=== PATIENT | female | born 1945 | race Caucasian/White ===

== ENCOUNTER 2017-01-29 13:24 | Emergency (ER) | payer MEDICARE, OTHER ==
[2017-01-29 13:51] VITALS: BP 123/58; PULSE 67; RESP 20; TEMP 98.4; O2SAT 95
[2017-01-29] MEDS ORDERED: SPIRCAP INH (14:40)
[2017-01-29] MEDS ORDERED: SYMB80AE INH (14:40)
[2017-01-29] MEDS ORDERED: ALLO100T PO (14:40)
[2017-01-29] MEDS ORDERED: XARE10TA PO (14:40)
[2017-01-29] MEDS ORDERED: SODIUM CHLOR 0.9% 1000 ML INJ 1,000 ML IV SCH (14:49)
--- NOTE | 2017-01-29 14:55 | PD ---
HPI Chief Complaint: Skin Problem Time Seen by Provider: 14:49 Travel History International Travel<30 days: No Contact w/Intl Traveler<30days: No Traveled to known affect area: No History of Present Illness HPI The patient is a 71-year-old female who presents emergency department for a rash. The patient states that the rash started earlier today, one to 2 hours prior to arrival. The rash is located over the anterior aspect of the chest, abdomen, and back. She describes the rash is red, elevated, but minimally pruritic. She denies any swelling of the tongue, lips, difficulty swallowing, or wheezing. She denies any chest tightness or shortness of breath. She denies any history of similar reactions. She does have a history of COPD was recently placed on Levaquin 3 days ago. She denies any previous history of allergies or exposure to Levaquin. 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 The patient does complain of mild nausea but denies any vomiting. She denies any accompanying abdominal pain. PFSH Past Medical History Atrial Fibrillation: Yes COPD: Yes GERD: Yes Social History Alcohol Use: No Tobacco Use: No Substance Use: No Allergies-Medications (Allergen,Severity, Reaction): Coded Allergies: Penicillins (Verified Allergy, Unknown, 01/29/17) morphine (Verified Allergy, Unknown, 01/29/17) shellfish derived (Verified Allergy, Unknown, 01/29/17) Reported Meds & Prescriptions Reported Meds & Active Scripts Active Reported Symbicort Inh (Budesonide/Formoterol Fumarate) 80-4.5 Mcg/Act Aero Unknown Dose INH Q12HR Xarelto (Rivaroxaban) 10 Mg Tab Unknown Dose PO DAILY Allopurinol 100 Mg Tab Unknown Dose PO DAILY Spiriva Handihaler (Tiotropium Inh) 18 Mcg Cap 18 Mcg INH DAILY 1 capsule = 18 mcg Review of Systems Except as stated in HPI: all other systems reviewed are Neg General / Constitutional: No: Fever HENT: No: Sore Throat Cardiovascular: No: Chest Pain or Discomfort Respiratory: No: Shortness of Breath, Wheezing Gastrointestinal: Positive: Nausea, No: Vomiting Skin: Positive Rash Physical Exam Narrative GENERAL: Awake, alert, nontoxic-appearing 71-year-old female who appears her stated age and is in no acute respiratory distress. SKIN: Focused skin assessment warm/dry. Patient has an erythematous, elevated rash on the anterior aspect of the chest, abdomen, and back which is blanching. No visible involvement of the face, hands, or feet. HEAD: Atraumatic. Normocephalic. EYES: Pupils equal and round. No scleral icterus. No injection or drainage. ENT: No nasal bleeding or discharge. Mucous membranes pink and moist. No angioedema of the lips, uvula, or tongue noted. NECK: Trachea midline. No JVD. CARDIOVASCULAR: Regular rate and rhythm. No murmur appreciated. RESPIRATORY: No accessory muscle use. Clear to auscultation. Breath sounds equal bilaterally. No wheezing noted. GASTROINTESTINAL: Abdomen soft, non-tender, nondistended. MUSCULOSKELETAL: No obvious deformities. No clubbing. No cyanosis. No edema. NEUROLOGICAL: Awake and alert. No obvious cranial nerve deficits. Motor grossly within normal limits. Normal speech. PSYCHIATRIC: Appropriate mood and affect; insight and judgment normal. Data Data Last Documented VS Vital Signs Date Time Temp Pulse Resp B/P (MAP) Pulse Ox O2 Delivery O2 Flow Rate FiO2 01/29/17 16:10 57 20 127/49 (75) 92 01/29/17 13:51 98.4 Orders Orders Ecg Monitoring (01/29/17 14:49) Iv Access Insert/Monitor (01/29/17 14:49) Oximetry (01/29/17 14:49) Diphenhydramine Inj (Benadryl Inj) (01/29/17 15:00) Methylprednisolone So Succ Inj (Solumedr (01/29/17 15:00) Famotidine Inj (Pepcid Inj) (01/29/17 15:00) Sodium Chlor 0.9% 1000 Ml Inj (Ns 1000 M (01/29/17 14:49) Sodium Chloride 0.9% Flush (Ns Flush) (01/29/17 15:00) MDM Medical Decision Making Medical Screen Exam Complete: Yes Emergency Medical Condition: Yes Medical Record Reviewed: Yes Differential Diagnosis Differential diagnosis includes allergic reaction, urticaria, angioedema, medication side effect, dermatitis, viral eruption. Narrative Course IV was established, labs are drawn and sent, and the patient was placed on cardiac telemetry monitoring and continuous pulse oximetry monitoring. The patient was administered Solu-Medrol, Benadryl, Pepcid, Zofran, and IV fluids. The patient was reevaluated at 4:40 PM, her rash was still present, but was dull and still blanching. The patient had no angioedema noted of the tongue, lips, or uvula. The patient was able to tolerate Gatorade without difficulty. The patient is advised to stop the Levaquin as this may be an allergic reaction and to take medications as directed. She is advised to follow-up with her primary physician and return if symptoms worsen or progress. Patient Instructions: General Instructions Additional Instructions: Medications as directed. Stop Levaquin. Follow-up with your primary physician. Return if symptoms worsen or progress. Med/Other Pt SpecificInfo: Prescription(s) given Scripts Ranitidine (Zantac) 150 Mg Tab 150 MG PO BID for Reduce Stomach Acid for 5 Days, #10 TAB 0 Refills Prov: Damion Xiao MD 01/29/17 Diphenhydramine (Diphenhydramine) 25 Mg Cap 25 MG PO Q6H Y for ALLERGIES, #20 CAP 0 Refills Prov: Damion Xiao MD 01/29/17 Prednisone (Deltasone) 20 Mg Tab 40 MG PO DAILY for 4 Days, #8 TAB 0 Refills Prov: Damion Xiao MD 01/29/17 Epinephrine Inj (Epipen 2-Zack Inj) 0.3 Mg/0.3 Ml Pfpen 0.3 MG IM ONCE Y for ALLERGIC REACTION, #1 PACK 0 Refills Prov: Damion Xiao MD 01/29/17 Disposition: 01 DISCHARGE HOME Condition: Stable Damion Xiao MD Jan 29, 2017 14:55
[2017-01-29 14:58] VITALS: O2SAT 98
[2017-01-29] MEDS ORDERED: diphenhydrAMINE HCL 50 MG/ML VIAL IVP ONE (15:00)
[2017-01-29] MEDS ORDERED: methylPREDNISolone SOD SUCC 125 MG/2 ML VIAL IVP ONE (15:00)
[2017-01-29] MEDS ORDERED: SODIUM CHLORIDE 0.9% FLUSH 10 ML FLUSH IV FLUSH PRN (15:00)
[2017-01-29] MEDS ORDERED: FAMOTIDINE 20 MG/2 ML VIAL IV PUSH ONE (15:00)
[2017-01-29 15:05] VITALS: BP 109/54; PULSE 61; RESP 20; O2SAT 94
[2017-01-29 16:10] VITALS: BP 127/49; PULSE 57; RESP 20; O2SAT 92
[2017-01-29] MEDS ORDERED: DIPH25CA PO (16:49)
[2017-01-29] MEDS ORDERED: ZANT150T2 PO (16:49)
[2017-01-29] MEDS ORDERED: PRED-503 PO (16:49)
[2017-01-29] MEDS ORDERED: EPIP0.3I IM (16:49)
== END 2017-01-29 17:44 | disposition home or self-care (01) ==
LOC: PHED 13:24
DX: R21 Rash and other nonspecific skin eruption (principal); I48.91 Unspecified atrial fibrillation; J44.9 Chronic obstructive pulmonary disease, unspecified; K21.9 Gastro-esophageal reflux disease without esophagitis; Z88.0 Allergy status to penicillin
CPT/HCPCS: 96361; 96374; 96375; 99284; J1200; J2930; J7030

== ENCOUNTER 2017-03-11 23:12 | Inpatient (IN) | payer OTHER, MEDICARE ==
[~2017-03-11] VITALS: Ht 162.6 cm; Wt 80.0 kg
[~2017-03-11 23:12] MED LIST: ALLO100T PO; DIPH25CA PO; EPIP0.3I IM; PRED-503 PO; SPIRCAP INH; SYMB80AE INH; XARE10TA PO; ZANT150T2 PO
[2017-03-11] MEDS ORDERED: IOHEXOL 350 MG/ML 10 ML VIAL (for RAD DIAG) IVCONTRAST ONE (23:13)
[2017-03-11 23:33] VITALS: BP 151/67; PULSE 77; RESP 19; TEMP 98.3; O2SAT 94
[2017-03-11 23:36] VITALS: RESP 19; O2SAT 98
[2017-03-11 23:41] LABS: AUTOMATED NEUTROPHIL # 11.5 TH/MM3 (1.8-7.7); BASOPHIL # 0.1 TH/MM3 (0-0.2); BASOPHIL % 1.1 % (0.0-2.0); EOSINOPHIL % 0.1 % (0.0-4.0); HEMATOCRIT 39.4 % (35.0-46.0); LYMPH % 9.1 % (9.0-44.0); LYMPHOCYTE # 1.2 TH/MM3 (1.0-4.8); MEAN CELL VOLUME 94.2 FL (80.0-100.0); MEAN CORPUSCULAR HEMOGLOBIN 31.8 PG (27.0-34.0); MEAN CORPUSCULAR HGB CONC 33.8 % (32.0-36.0); MONO % 3.5 % (0.0-8.0); NEUT % 86.2 % (16.0-70.0); PLATELET COUNT 214 TH/MM3 (150-450); RED BLOOD COUNT 4.18 MIL/MM3 (4.00-5.30); RED CELL DISTRIBUTION WIDTH 15.9 % (11.6-17.2); WHITE BLOOD COUNT 13.3 TH/MM3 (4.0-11.0)
[2017-03-11 23:44] LABS: HEMO FLAGS AUTO DIFF
--- NOTE | 2017-03-11 23:44 | PD ---
HPI Chief Complaint: GI Complaint Time Seen by Provider: 23:21 Travel History International Travel<30 days: No Contact w/Intl Traveler<30days: No Traveled to known affect area: No History of Present Illness HPI The patient is a 71 year old female who presents to the [facility] emergency department with a history of sudden onset of abdominal distention with a burning sensation in the center of her abdomen that began 2 hours prior to arrival. She denies ever having a pain like this previously. She reports that it began just after she took oxycodone. She reports that she was newly started on this 2 days ago. She reports that she was told that she could take 2 -5 mg tablets at one time. She did try taking 2 at one time for her back and bilateral leg pain for the first time prior to the onset of these symptoms. She reports that she felt flushed, nauseated, and sweaty. She denies having any chest pain, chest pressure, or worsening shortness of breath. She reports that she was recently placed on hospice related to severe COPD. On review of systems otherwise, the patient denies having any known fevers, congestion, neck pain, urinary symptoms, or neurologic symptoms. The patient She does however report having a cough since onset of the pain that was productive of yellow sputum times one. The patient reports that she last her bowels earlier today. She denies having any blood in her stool. She reports that she is on iron, therefore her stools are dark in color. The patient was provided by ambulance services Zofran 4 mg IV prior to arrival. [facility] Past Medical History Narrative Medical The patient's past medical history is significant for atrial fibrillation, severe COPD, history of a lung nodule. The patient was previously on Xarelto for anticoagulation, however she discontinued it. The patient has a history of acid reflux. Atrial Fibrillation: Yes COPD: Yes GERD: Yes ?: Not Past Surgical History Narrative Surgical The patient denies any past surgical history. Social History Alcohol Use: No Tobacco Use: No Substance Use: No Allergies-Medications (Allergen,Severity, Reaction): Coded Allergies: Penicillins (Verified Allergy, Unknown, 01/29/17) morphine (Verified Allergy, Unknown, 01/29/17) shellfish derived (Verified Allergy, Unknown, 01/29/17) Reported Meds & Prescriptions Reported Meds & Active Scripts Active Deltasone (Prednisone) 20 Mg Tab 40 Mg PO DAILY 4 Days Reported Symbicort Inh (Budesonide/Formoterol Fumarate) 80-4.5 Mcg/Act Aero Unknown Dose INH Q12HR Spiriva Handihaler (Tiotropium Inh) 18 Mcg Cap 18 Mcg INH DAILY 1 capsule = 18 mcg Review of Systems Except as stated in HPI: all other systems reviewed are Neg General / Constitutional: No: Fever Eyes: No: Visual changes HENT: No: Headaches Cardiovascular: No: Chest Pain or Discomfort Respiratory: No: Shortness of Breath Gastrointestinal: Positive: Nausea, Abdominal Pain, No: Vomiting, Diarrhea Genitourinary: No: Dysuria Musculoskeletal: No: Pain Skin: No Rash Neurologic: No: Weakness Psychiatric: No: Depression Endocrine: No: Polydipsia Hematologic/Lymphatic: No: Easy Bruising Physical Exam Narrative General: The patient is a well-developed well-nourished female who is uncomfortable appearing on arrival. The patient is intermittently retching. Head and Neck exam: Head is normocephalic atraumatic. Eyes: EOMI, pupils are equal round and reactive to light. Nose: Midline septum with pink mucous membranes Mouth: Dentition unremarkable. Moist mucus membranes. Posterior oropharynx is not erythematous. No tonsillar hypertrophy. Uvula midline. Airway patent. Neck: No palpable lymphadenopathy. No nuchal rigidity. No thyromegaly. Cardiovascular: Regular rate and rhythm without murmurs, gallops, or rubs. No pulse deficits to the extremities on simultaneous auscultation and palpation of her radial artery. Lungs: Clear to auscultation bilaterally. No wheezes, rhonchi, or rales. Abdomen: Soft, with tenderness on palpation along the center of the abdomen and worse in bilateral lower quadrants of the abdomen with distention noted. The patient has decreased bowel sounds are audible. The patient has a positive Angel sign. The patient has no tenderness on palpation over McBurney's point. Negative fluid wave. Extremities: No clubbing, cyanosis, or edema. 2+ pulses in all 4 extremities. Back: No spinous process tenderness to palpation. No costovertebral angle tenderness to palpation. Neurologic Exam: Cranial nerves 2-12 were intact on exam. Strength is 5/5 in all 4 extremities. No sensory deficits noted. Skin Exam: No rash noted. Intact skin that is warm and dry. Data Data Last Documented VS Vital Signs Date Time Temp Pulse Resp B/P (MAP) Pulse Ox O2 Delivery O2 Flow Rate FiO2 03/11/17 23:36 19 98 Room Air 03/11/17 23:33 98.3 77 151/67 (95) Orders Orders Complete Blood Count With Diff (03/11/17 23:21) Comprehensive Metabolic Panel (03/11/17:) Creatine Kinase (Cpk) (03/11/17:21) Ckmb (Isoenzyme) Profile (03/11/17:) Troponin I (03/11/17:) B-Type Natriuretic Peptide (03/11/17:) Prothrombin Time / Inr (Pt) (03/11/17:) Act Partial Throm Time (Ptt) (03/11/17:) Lipase (03/11/17:) Urinalysis - C+S If Indicated (03/11/17:) Magnesium (Mg) (03/11/17:) Chest, Single Ap (03/11/17 23:21) Iv Access Insert/Monitor (03/11/17 23:21) Ecg Monitoring (03/11/17:) Oximetry (03/11/17:) Lactic Acid Sepsis Protocol (03/11/17 23:21) Hydromorphone Pf Inj (Dilaudid Pf Inj) (03/12/17 00:00) Prochlorperazine Inj (Compazine Inj) (03/12/17 00:00) Sodium Chlor 0.9% 250 Ml Inj (Ns 250 Ml (03/12/17 00:00) Cta Abdomen W Iv Contrast W 3d (03/12/17 ) Sodium Chlor 0.9% 1000 Ml Inj (Ns 1000 M (03/12/17 01:15) Blood Culture (03/12/17 01:09) Vancomycin Inj (Vancomycin Inj) (03/12/17 01:09) Aztreonam Inj (Azactam Inj) (03/12/17 01:09) Metronidazole 500 Mg Inj (Flagyl 500 Mg (03/12/17 01:09) Al-Mag Hy-Si 40-40-4 Mg/Ml Liq (Mag-Al P (03/12/17 02:15) Digoxin (03/12/17 02:15) Iohexol 350 Inj (Omnipaque 350 Inj) (03/11/17 23:13) Pantoprazole Inj (Protonix Inj) (03/12/17 03:45) Metoclopramide Inj (Reglan Inj) (03/12/17 03:45) Admit Order (Ed Use Only) (03/12/17 03:41) Labs Laboratory Tests Test 03/11/17 23:30 03/12/17 02:40 03/12/17 03:20 White Blood Count 13.3 TH/MM3 Red Blood Count 4.18 MIL/MM3 Hemoglobin 13.3 GM/DL Hematocrit 39.4 % Mean Corpuscular Volume 94.2 FL Mean Corpuscular Hemoglobin 31.8 PG Mean Corpuscular Hemoglobin Concent 33.8 % Red Cell Distribution Width 15.9 % Platelet Count 214 TH/MM3 Mean Platelet Volume 6.7 FL Neutrophils (%) (Auto) 86.2 % Lymphocytes (%) (Auto) 9.1 % Monocytes (%) (Auto) 3.5 % Eosinophils (%) (Auto) 0.1 % Basophils (%) (Auto) 1.1 % Neutrophils # (Auto) 11.5 TH/MM3 Lymphocytes # (Auto) 1.2 TH/MM3 Monocytes # (Auto) 0.5 TH/MM3 Eosinophils # (Auto) 0.0 TH/MM3 Basophils # (Auto) 0.1 TH/MM3 CBC Comment AUTO DIFF Differential Total Cells Counted 100 Neutrophils % (Manual) 79 % Band Neutrophils % 6 % Lymphocytes % 4 % Monocytes % 5 % Basophils % 1 % Neutrophils # (Manual) 12.0 TH/MM3 Metamyelocytes 5 % Nucleated Red Blood Cells 1 /100 WBC Differential Comment FINAL DIFF MANUAL Platelet Estimate NORMAL Platelet Morphology Comment NORMAL Prothrombin Time 10.1 SEC Prothromb Time International Ratio 0.9 RATIO Activated Partial Thromboplast Time 21.0 SEC Blood Urea Nitrogen 18 MG/DL Creatinine 0.94 MG/DL Random Glucose 146 MG/DL Total Protein 6.8 GM/DL Albumin 3.8 GM/DL Calcium Level 8.7 MG/DL Magnesium Level 1.8 MG/DL Alkaline Phosphatase 67 U/L Aspartate Amino Transf (AST/SGOT) 24 U/L Alanine Aminotransferase (ALT/SGPT) 48 U/L Total Bilirubin 0.7 MG/DL Sodium Level 138 MEQ/L Potassium Level 4.1 MEQ/L Chloride Level 103 MEQ/L Carbon Dioxide Level 23.4 MEQ/L Anion Gap 12 MEQ/L Estimat Glomerular Filtration Rate 59 ML/MIN Lactic Acid Level 3.0 mmol/L 3.3 mmol/L Total Creatine Kinase 42 U/L Troponin I LESS THAN 0.02 NG/ML B-Type Natriuretic Peptide 81 PG/ML Lipase 143 U/L Digoxin Level 0.9 NG/ML Urine Color LIGHT-YELLOW Urine Turbidity CLEAR Urine pH 6.5 Urine Specific [place] 1.026 Urine Protein NEG mg/dL Urine Glucose (UA) NEG mg/dL Urine Ketones NEG mg/dL Urine Occult Blood NEG Urine Nitrite NEG Urine Bilirubin NEG Urine Urobilinogen LESS THAN 2.0 MG/DL Urine Leukocyte Esterase MOD Urine RBC 1 /hpf Urine WBC 5 /hpf Urine Squamous Epithelial Cells 1 /hpf Urine Hyaline Casts 1 /lpf Microscopic Urinalysis Comment CULT NOT INDICATED MDM Medical Decision Making Medical Screen Exam Complete: Yes Emergency Medical Condition: Yes Medical Record Reviewed: Yes Interpretation(s) Last Impressions Abdomen CTA 03/12/17 0000 Signed Impressions: Service Date/Time: Sunday, March 12, 2017 02:08 - CONCLUSION: 1. Multiple dilated loops of small bowel and dilated stomach which can be seen with partial obstruction. 2. Diverticulosis of the colon without diverticulitis. 3. Mesenteric vasculature is patent. Michael Barrow MD Chest X-Ray 03/11/17 2321 Signed Impressions: Service Date/Time: Saturday, March 11, 2017 23:52 - CONCLUSION: 1. Bibasilar densities likely atelectasis. Michael Barrow MD Differential Diagnosis Acute pancreatitis, versus acute cholecystitis, versus ileus, versus bowel obstruction, versus ischemic bowel, versus diverticulitis, versus colitis Narrative Course During the course of the patients emergency department visit, the patients history, examination, and differential diagnosis were reviewed with the patient. The patient was placed on a property assessment monitor with oximetry and frequent blood pressure monitoring. The patient had IV access obtained and blood work sent for analysis. An EKG was done on arrival. The patient's EKG shows a sinus rhythm with a sinus arrhythmia, nonspecific ST-T wave abnormalities, QRS duration is 72 ms, QTC 337 ms. The patient was initially provided hydromorphone for pain, Compazine for nausea. The patient was given normal saline IV fluids. The patients laboratory studies were reviewed and remarkable for a white count of 13.3, hemoglobin 13.3, platelets 214 with 86.2 neutrophils, CMP is remarkable for glucose 146, CPK 42, troponin I less than 0.02, BNP 81, lipase 143, lactic acid 3.0, PT 10.1, PTT 21.0 Radiology studies were reviewed and remarkable for a chest x-ray that shows bibasilar densities that are likely atelectasis. Given the patient's elevated white blood cell count and elevated lactate, differential for this includes sepsis versus ischemic bowel, versus dehydration. The patient was started on a second liter normal saline IV fluid bolus. The patient was covered with broad- spectrum antibiotic for possible intra-abdominal source with Azactam, Flagyl, and vancomycin given her penicillin allergy. CT scan of the abdomen and pelvis shows multiple dilated loops of small bowel and dilated stomach which can be seen with a partial bowel obstruction, diverticulosis of the colon without diverticulitis, mesenteric vasculature is patent. The patients results were discussed with the patient, including the plan of care. I explained that further testing and/ or monitoring is indicated based on the patients history, examination, and/ or laboratory findings. Therefore, I recommended admission for additional evaluation. The patient expressed understanding and was agreeable with this plan. The patient was admitted to the hospital in guarded condition and sent to a bed under the care of the [facility]. Physician Communication Physician Communication The patient's case is discussed with Dr. Victor who did agree to admit the patient for further evaluation and treatment at this time. Diagnosis Primary Impression: Abdominal pain Qualified Codes: R10.84 - Generalized abdominal pain Additional Impression: Partial small bowel obstruction Admitting Information Admitting Physician Requests: Admit Jaylyn Vasquez MD Mar 11, 2017 23:44
[2017-03-11 23:59] LABS: ANION GAP 12 MEQ/L (5-15); AST (GOT) 24 U/L (15-37); BICARBONATE 23.4 MEQ/L (21.0-32.0); BLOOD UREA NITROGEN 18 MG/DL (7-18); CHLORIDE 103 MEQ/L (98-107); GLOMERULAR FILTRATION RATE 59 ML/MIN (>89); MAGNESIUM 1.8 MG/DL (1.5-2.5); POTASSIUM 4.1 MEQ/L (3.5-5.1); SODIUM (NA) 138 MEQ/L (136-145)
[2017-03-12] VITALS (7 sets, daily range): BP systolic 135–140; BP diastolic 65–70; PULSE 80–85; RESP 16; TEMP 98.3–99.9; O2SAT 97–98
[2017-03-12] LABS: ALT (GPT) 48 U/L (10-53)
[2017-03-12] MEDS ORDERED: SODIUM CHLOR 0.9% 250 ML INJ 250 ML IV ONE
[2017-03-12] MEDS ORDERED: HYDROmorphone HCL PF 0.5 MG/0.5 ML SYRINGE IV PUSH ONE
[2017-03-12] MEDS ORDERED: PROCHLORPERAZINE INJ 10 MG/2 ML VIAL IV PUSH ONE
[2017-03-12 00:02] LABS: INTERNATIONAL NORMALIZED RATIO 0.9 RATIO; PROTHROMBIN TIME - PATIENT 10.1 SEC (9.8-11.6)
[2017-03-12 00:04] LABS: ALKALINE PHOSPHATASE 67 U/L (45-117); TOTAL BILIRUBIN ADULT 0.7 MG/DL (0.2-1.0)
[2017-03-12 00:05] LABS: CREATINE KINASE 42 U/L (26-192)
--- NOTE | 2017-03-12 00:06 | RADRPT ---
EXAM DATE/TIME: 03/11/2017 23:52 [facility] COMPARISON: No previous studies available for comparison. INDICATIONS : Cough. MEDICAL HISTORY : None. SURGICAL HISTORY : None. ENCOUNTER: Initial ACUITY: 1 day PAIN SCORE: 0/10 LOCATION: Bilateral chest FINDINGS: A single view of the chest demonstrates bibasilar linear densities greater left lower lobe. Heart bor derline enlarged. The cardiomediastinal contours are unremarkable. Osseous structures are intact. CONCLUSION: 1. Bibasilar densities likely atelectasis. Michael Barrow MD on March 12, 2017 at 0:03 Board Certified Radiologist. This report was verified electronically.
[2017-03-12 00:33] LABS: BANDS 6 % (0-6); BASOPHILS 1 % (0-2); CORRECTED NUCLEATED RBC 1 /100 WBC (0-0); METAMYELOCYTES 5 % (0-1); POLYS (SEG NEUTROPHILS) 79 % (16-70); WBC DIFF SAMPLE 100
[2017-03-12 00:34] LABS: PLATELET ESTIMATE SMEAR NORMAL (NORMAL); PLATELET MORPHOLOGY NORMAL (NORMAL); SCAN/DIFF FINAL DIFF MANUAL
[2017-03-12] MEDS ORDERED: AZTREONAM INJ 2,000 MG in SODIUM CHLORIDE 0.9% INJ 100 ML IV STA (01:09)
[2017-03-12] MEDS ORDERED: metroNIDAZOLE 500 MG INJ 100 ML IV STA (01:09)
[2017-03-12] MEDS ORDERED: VANCOMYCIN INJ 1,000 MG in SODIUM CHLOR 0.9% 250 ML INJ 250 ML IV STA (01:09)
[2017-03-12] MEDS ORDERED: SODIUM CHLOR 0.9% 1000 ML INJ 1,000 ML IV ONE (01:15)
[2017-03-12 01:36] LABS: LACTIC ACID GHOST NOT REPORTABLE
[2017-03-12] MEDS ORDERED: ALUMINUM/MAGNESIUM/SIMETH 30 ML CUP PO ONE (02:15)
[2017-03-12 03:02] LABS: BLOOD, URINE NEG (NEG); COMMENT (UR) CULT NOT INDICATED; CULTURE IF INDICATED CULT NOT INDICATED; GLUCOSE,URINE NEG (NEG); HYALINE CAST, URINE 1 /lpf (RARE); KETONE, URINE NEG (NEG); NITRITE,URINE NEG (NEG); PH, URINE 6.5 (5.0-8.5); SQUAMOUS EPITHELIAL CELL URINE 1 /hpf (0-5); URINE COLOR LIGHT-YELLOW (YELLW/STRAW)
--- NOTE | 2017-03-12 03:23 | RADRPT ---
EXAM DATE/TIME: 03/12/2017 02:08 [facility] COMPARISON: No previous studies available for comparison. INDICATIONS : Abdomen pain. Possible ischemic bowel. IV CONTRAST: 95 cc Omnipaque 350 (iohexol) IV RADIATION DOSE: 5.72 CTDIvol (mGy) MEDICAL HISTORY : Chronic obstructive pulmonary disease. Gastroesophageal reflux disease. SURGICAL HISTORY : None. ENCOUNTER: Initial ACUITY: 1 day PAIN SCALE: 10/10 LOCATION: Bilateral abdomen TECHNIQUE: Volumetric scanning was performed using a multi-row detector CT scanner. The data was post processed with a variety of visualization algorithms including full volume maximum intensity projection, multi -planar sliding thin slab reformation, curved planar reformation, and surface rendering techniques. Using automated exposure control and adjustment of the mA and/or kV according to patient size, radiat ion dose was kept as low as reasonably achievable to obtain optimal diagnostic quality images. DICOM format image data is available electronically for review and comparison. FINDINGS: ABDOMINAL AORTA: Mild atherosclerotic changes. The lumen is smooth without significant narrowing or aneurismal dilatio n. The proximal celiac and superior mesenteric arteries are patent and normal in diameter. There are solitary renal arteries bilaterally without gross abnormality. BIFURCATION: Normal. RIGHT PELVIS: The right common iliac, internal iliac and external iliac vessels are patent without luminal irregula rity. Mild atherosclerotic changes. LEFT PELVIS: The left common iliac, internal iliac and external iliac vessels are patent and without luminal irreg ularity. Mild atherosclerotic changes. Stomach is dilated. Multiple dilated loops of small bowel. Diverticulosis of the colon. CONCLUSION: 1. Multiple dilated loops of small bowel and dilated stomach which can be seen with partial obstructi on. 2. Diverticulosis of the colon without diverticulitis. 3. Mesenteric vasculature is patent. Michael Barrow MD on March 12, 2017 at 3:18 Board Certified Radiologist. This report was verified electronically.
[2017-03-12] MEDS ORDERED: PANTOPRAZOLE SODIUM 40 MG VIAL IV PUSH ONE (03:45)
[2017-03-12] MEDS ORDERED: METOCLOPRAMIDE HCL 10 MG/2 ML VIAL IV PUSH ONE (03:45)
[2017-03-12] MEDS: SODIUM CHLOR 0.9% 1000 ML INJ 1,000 ML IV SCH ×2 (03:51→14:49)
[2017-03-12] MEDS ORDERED: NALOXONE HCL 0.4 MG/ML AMP IV PUSH PRN (04:00)
[2017-03-12] MEDS ORDERED: SODIUM CHLORIDE 0.9% FLUSH 10 ML FLUSH IV FLUSH PRN (04:00)
[2017-03-12] MEDS ORDERED: RESP: ALBUTEROL 2.5 MG/IPRATROPIUM 0.5 MG NEB (PRN) NEB (04:15)
--- NOTE | 2017-03-12 04:19 | HHI.HP ---
[facility] Service [facility] Primary Care Physician Unknown Admission Diagnosis Partial small bowel obstruction Diagnoses: Chief Complaint: abdominal pain Travel History International Travel<30 Days: No Contact w/Intl Traveler <30 Da: No Traveled to Known Affected Are: No History of Present Illness Written by FLORIN Mccauley acting as scribe for [Valente] on 03/12/17 at 04: 15. 71 y/o female with a history of COPD on O2 as needed, DM, currently on hospice for COPD presented to the ED with complaints of abdominal pain. She is currently sob and not very cooperative with answering questions. She says yes to sob, abdominal pain, nausea and vomiting. She is requesting a breathing treatment and states she can not talk til she gets one. She will not answer family history or social history questions. Review of Systems ROS Limitations: Uncooperative Except as stated in HPI: all other systems reviewed are Neg Past Family Social History Past Medical History COPD on O2 as needed DM Currently on hospice for COPD. Past Surgical History Patient denies any surgical history Reported Medications Reported Meds & Active Scripts Active Deltasone (Prednisone) 20 Mg Tab 40 Mg PO DAILY 4 Days Reported Symbicort Inh (Budesonide/Formoterol Fumarate) 80-4.5 Mcg/Act Aero Unknown Dose INH Q12HR Spiriva Handihaler (Tiotropium Inh) 18 Mcg Cap 18 Mcg INH DAILY 1 capsule = 18 mcg Allergies: Coded Allergies: Penicillins (Verified Allergy, Unknown, 01/29/17) morphine (Verified Allergy, Unknown, 01/29/17) shellfish derived (Verified Allergy, Unknown, 01/29/17) Active Ordered Medications Current Medications Medications (Trade) Dose Ordered Sig/Anastasiia Route Start Time Stop Time Status Last Admin Sodium Chloride 1,000 ml @ 100 mls/hr Q10H IV 03/12/17 03:48 03/12/17 03:51 (NS Flush) 2 ml UNSCH PRN IV FLUSH 03/12/17 04:00 (NS Flush) 2 ml BID IV FLUSH 03/12/17 09:00 (Narcan Inj) 0.4 mg UNSCH PRN IV PUSH 03/12/17 04:00 (Protonix) 40 mg DAILY PO 03/12/17 09:00 Family History Patient will not answer Social History Patient will not answer Physical Exam Vital Signs Vital Signs Date Time Temp Pulse Resp B/P (MAP) Pulse Ox O2 Delivery O2 Flow Rate FiO2 03/11/17 23:36 19 98 Room Air 03/11/17 23:33 98.3 77 19 151/67 (95) 94 Physical Exam GENERAL: This is a well-nourished, obese patient who looks chronically ill. SKIN: No rashes, ecchymoses or lesions. Cool and dry. HEAD: Atraumatic. Normocephalic. EYES: Pupils equal round and reactive. ENT: Nose without bleeding, purulent drainage or septal hematoma. Airway patent. NECK: Trachea midline. No JVD CARDIOVASCULAR: Regular rate and rhythm without murmurs, gallops, or rubs. RESPIRATORY: Clear to auscultation. Breath sounds equal bilaterally. No wheezes , rales, or rhonchi. GASTROINTESTINAL: Abdomen soft, non-tender, nondistended. No hepato-splenomegaly , or palpable masses. No guarding. MUSCULOSKELETAL: Extremities without clubbing, cyanosis, or edema. No joint tenderness, effusion, or edema noted. No calf tenderness. NEUROLOGICAL: Awake and alert. Motor and sensory grossly within normal limits. Normal speech. Laboratory Laboratory Tests Test 03/11/17 23:30 03/12/17 02:40 03/12/17 03:20 White Blood Count 13.3 Red Blood Count 4.18 Hemoglobin 13.3 Hematocrit 39.4 Mean Corpuscular Volume 94.2 Mean Corpuscular Hemoglobin 31.8 Mean Corpuscular Hemoglobin Concent 33.8 Red Cell Distribution Width 15.9 Platelet Count 214 Mean Platelet Volume 6.7 Neutrophils (%) (Auto) 86.2 Lymphocytes (%) (Auto) 9.1 Monocytes (%) (Auto) 3.5 Eosinophils (%) (Auto) 0.1 Basophils (%) (Auto) 1.1 Neutrophils # (Auto) 11.5 Lymphocytes # (Auto) 1.2 Monocytes # (Auto) 0.5 Eosinophils # (Auto) 0.0 Basophils # (Auto) 0.1 CBC Comment AUTO DIFF Differential Total Cells Counted 100 Neutrophils % (Manual) 79 Band Neutrophils % 6 Lymphocytes % 4 Monocytes % 5 Basophils % 1 Neutrophils # (Manual) 12.0 Metamyelocytes 5 Nucleated Red Blood Cells 1 Differential Comment FINAL DIFF MANUAL Platelet Estimate NORMAL Platelet Morphology Comment NORMAL Prothrombin Time 10.1 Prothromb Time International Ratio 0.9 Activated Partial Thromboplast Time 21.0 Blood Urea Nitrogen 18 Creatinine 0.94 Random Glucose 146 Total Protein 6.8 Albumin 3.8 Calcium Level 8.7 Magnesium Level 1.8 Alkaline Phosphatase 67 Aspartate Amino Transf (AST/SGOT) 24 Alanine Aminotransferase (ALT/SGPT) 48 Total Bilirubin 0.7 Sodium Level 138 Potassium Level 4.1 Chloride Level 103 Carbon Dioxide Level 23.4 Anion Gap 12 Estimat Glomerular Filtration Rate 59 Lactic Acid Level 3.0 3.3 Total Creatine Kinase 42 Troponin I LESS THAN 0.02 B-Type Natriuretic Peptide 81 Lipase 143 Digoxin Level 0.9 Urine Color LIGHT-YELLOW Urine Turbidity CLEAR Urine pH 6.5 Urine Specific [place] 1.026 Urine Protein NEG Urine Glucose (UA) NEG Urine Ketones NEG Urine Occult Blood NEG Urine Nitrite NEG Urine Bilirubin NEG Urine Urobilinogen LESS THAN 2.0 Urine Leukocyte Esterase MOD Urine RBC 1 Urine WBC 5 Urine Squamous Epithelial Cells 1 Urine Hyaline Casts 1 Microscopic Urinalysis Comment CULT NOT INDICATED Date/Time Source Procedure Growth Status 03/12/17 01:45 Blood Peripheral Aerobic Blood Culture Pending Received 03/12/17 01:45 Blood Peripheral Anaerobic Blood Culture Pending Received Result Diagram: 03/11/17 2330 03/11/172329 Imaging Last Impressions Abdomen CTA 03/12/17 0000 Signed Impressions: Service Date/Time: Sunday, March 12, 2017 02:08 - CONCLUSION: 1. Multiple dilated loops of small bowel and dilated stomach which can be seen with partial obstruction. 2. Diverticulosis of the colon without diverticulitis. 3. Mesenteric vasculature is patent. Michael Barrow MD Chest X-Ray 03/11/172320 Signed Impressions: Service Date/Time: Saturday, March 11, 2017 23:52 - CONCLUSION: 1. Bibasilar densities likely atelectasis. MD Kaylie Camarilloi VTE Risk Assessment Caprini VTE Risk Assessment: Mod/High Risk (score >= 2) Caprini Risk Assessment Model Point Value = 1 Point Value = 2 Point Value = 3 Point Value = 5 Age 41-60 Minor surgery BMI > 25 kg/m2 Swollen legs Varicose veins or History of unexplained or recurrent spontaneous Oral contraceptives or hormone replacement Sepsis (< 1 month) Serious lung disease, including pneumonia (< 1 month) Abnormal pulmonary function Acute myocardial infarction Congestive heart failure (< 1 month) History of inflammatory bowel disease Medical patient at bed rest Age 61-74 Arthroscopic surgery Major open surgery (> 45 min) Laparoscopic surgery (> 45 min) Malignancy Confined to bed (> 72 hours) Immobilizing plaster cast Central venous access Age >= 75 History of VTE Family history of VTE Factor V Leiden Prothrombin [id number] Lupus anticoagulant Anticardiolipin antibodies Elevated serum homocysteine Heparin-induced thrombocytopenia Other congenital or acquired thrombophilia Stroke (< 1 month) Elective arthroplasty Hip, pelvis, or leg fracture Acute spinal cord injury (< 1 month) Prophylaxis Regimen Total Risk Factor Score Risk Level Prophylaxis Regimen 0-1 Low Early ambulation 2 Moderate Order ONE of the following: *Sequential Compression Device (SCD) *Heparin 5000 units SQ BID 3-4 Higher Order ONE of the following medications: *Heparin 5000 units SQ TID *Enoxaparin/Lovenox 40 mg SQ daily (WT < 150 kg, CrCl > 30 mL/min) *Enoxaparin/Lovenox 30 mg SQ daily (WT < 150 kg, CrCl > 10-29 mL/min) *Enoxaparin/Lovenox 30 mg SQ BID (WT < 150 kg, CrCl > 30 mL/min) AND/OR *Sequential Compression Device (SCD) 5 or more Highest Order ONE of the following medications: *Heparin 5000 units SQ TID (Preferred with Epidurals) *Enoxaparin/Lovenox 40 mg SQ daily (WT < 150 kg, CrCl > 30 mL/min) *Enoxaparin/Lovenox 30 mg SQ daily (WT < 150 kg, CrCl > 10-29 mL/min) *Enoxaparin/Lovenox 30 mg SQ BID (WT < 150 kg, CrCl > 30 mL/min) AND *Sequential Compression Device (SCD) Assessment and Plan Problem List: (1) Partial small bowel obstruction ICD Code: K56.600 - Partial intestinal obstruction, unspecified as to cause (2) COPD (chronic obstructive pulmonary disease) ICD Code: J44.9 - Chronic obstructive pulmonary disease, unspecified Assessment and Plan 71 y/o female with a history of COPD on O2 as needed, gerd, DM, currently on hospice for COPD presented to the ED with complaints of abdominal pain. Partial small bowel obstruction Abdominal CT reviewed and shows Multiple dilated loops of small bowel, suggesting -NPO -IVF for hydration -Protonix IV -Will consult Gen surgery if patient worsens Leukocytosis, mild, likely reactive WBC 13.3 -Vancomycin given in ED -Labs in AM Lactic acidosis, suspect due to chronic COPD Lactic 3.0-->3.3 Chest xray reviewed and shows atelectasis -NS bolus given in ED, cont IVF -Trend labs COPD, chronic, unsure if exacerbation due to limited story by patient -Duo nebs scheduled and prn -Resume home medications -Consult Hospice for continuation of care DVT prophylaxis: SCDs Discussed Condition With Patient and RN Physician Certification 2 Midnight Certification Type: Admission for Inpatient Services Order for Inpatient Services The services are ordered in accordance with Medicare regulations or non- Medicare payer requirements, as applicable. In the case of services not specified as inpatient-only, they are appropriately provided as inpatient services in accordance with the 2-midnight benchmark. Estimated LOS (days): 2 days is the estimated time the patient will need to remain in the hospital, assuming treatment plan goals are met and no additional complications. Post-Hospital Plan: Not yet determined Danica Hathaway Mar 12, 2017 04:19
[2017-03-12] MEDS ORDERED: SODIUM CHLORIDE 0.9% FLUSH 10 ML FLUSH IV FLUSH SCH (09:00)
[2017-03-12] MEDS ORDERED: predniSONE 20 MG TAB PO SCH (09:00)
[2017-03-12] MEDS ORDERED: PANTOPRAZOLE SOD 40 MG DELAYED RELEASE TAB PO SCH ×2 (09:00)
[2017-03-12] MEDS: RESP: ALBUTEROL 2.5 MG/IPRATROPIUM 0.5 MG NEB (SCH) NEB ×2 (09:20→15:35)
[2017-03-12] MEDS ORDERED: ACETAMINOPHEN/HYDROcodone 325 MG/5 MG TAB PO PRN (11:30)
[2017-03-12] MEDS ORDERED: CALCIUM CARBONATE 500 MG CHEWABLE TAB CHEW PRN (11:45)
--- NOTE | 2017-03-12 11:47 | HHI.PR ---
Addendum to Inpatient Note Addendum Reason: Additional Documentation Additional Information Patient seen and examined. She complained of abdominal pain, worse in the mid epigastric region. She states her symptoms started after taking Oxycodone. She plans to go back on Hospice. Does not know which Hospice company she was with. She is passing gas and had an episode of diarrhea this morning GENERAL: Chronically ill-appearing female in no acute distress. CARDIOVASCULAR: Normal rate and regular rhythm without murmurs, gallops, or rubs. RESPIRATORY: Air movement is fair. Diminished breath sounds at the bases. GASTROINTESTINAL: Abdomen soft, tender to palpation, more so in the mid epigastric region. Normal and active bowel sounds. No rebound tenderness. MUSCULOSKELETAL: Extremities without cyanosis, or edema. NEURO: Alert & Oriented x4 to person, place, time, situation. Moves all ext x4 A/P: Patient with severe COPD on Hospice admitted with partial bowel obstruction and abdominal pain after taking Oxycodone. ?Gastritis. Patient has been on steroids. - Advance to clear liquid diet as tolerated today. DC prednisone for now. Continue PPI, add tums. - Resume [place] PRN for pain control. Pt aware this can also cause constipation and complicated obstruction. - Consult case management to resume Hospice. Patient states she came to the Hospital because Hospice did not arrive on time when she called them. Craig Coleman MD Mar 12, 2017 11:47
--- NOTE | 2017-03-12 14:57 | EKG ---
Date Performed: 03/11/2017 Time Performed: 23:21:55 PTAGE: 71 years EKG: Sinus rhythm WITH SINUS ARRHYTHMIA NONSPECIFIC ST & T-WAVE ABNORMALITY BORDERLINE ECG INTERPRETATION BASED ON A D EFAULT AGE OF 42 YEARS NO PREVIOUS TRACING DOCTOR: Iglesia Luther Interpretating Date/Time 03/12/2017 14:54:03
[2017-03-12] MEDS ORDERED: BUDESONIDE-FORMOTEROL 160/4.5 MCG INHALER INH SCH (21:00)
== END 2017-03-12 19:03 | disposition hospice, inpatient (51) | DRG 389 ==
LOC: NEPE 23:12 → NEDA 03-12 03:43 → NEPHCDU 03-12 04:44
PROVIDERS: ADMIT Family Medicine; ATTEND Family Medicine
DX: K56.600 Partial intestinal obstruction, unspecified as to cause (principal); E87.2 Acidosis; Z99.81 Dependence on supplemental oxygen; I48.91 Unspecified atrial fibrillation; J44.9 Chronic obstructive pulmonary disease, unspecified; K21.9 Gastro-esophageal reflux disease without esophagitis; E11.9 Type 2 diabetes mellitus without complications; K57.30 Diverticulosis of large intestine without perforation or abscess without bleeding
CPT/HCPCS: 71010; 74175; 80053; 80162; 81001; 82550; 83605; 83690; 83735; 83880; 84484; 85007; 85027; 85610; 85730; 87040; 93005; 94640; 94664; J1170; C9113; J0780; J2765; J3370; J7030; J7050; J7512; Q9967